=== PATIENT | female | born 1995 | race Two or more races ===

== ENCOUNTER 2017-11-09 06:57 | Day surgery (SDC) | payer OTHER ==
[~2017-11-09] VITALS: Ht 154.9 cm; Wt 70.8 kg
[~2017-11-09 06:57] MED LIST: MINIPRESS1 MG PO; NORCO 10-325 T1 EACH PO; NORCO 5-325 TA1 EACH PO; SENNA8.6 M1 PO; SOLODYN45 MG PO; SUDAFED PE PRE1 EAC2 PO; TYLENOL EXTRA500 MG PO; ZOLOFT100 MG PO
--- NOTE | 2017-11-09 08:40 | NUR ---
11/09/17 0840 Soumya Gerber 0832 - PT ARRIVED TO PACU. OPA IN PLACE. AIRWAY HELD. PT NOT RESPONDING AT THIS TIME. CEO NA AWARE OF BP. STATES NO ACTION NEEDED AT THIS TIME.
[2017-11-09] MEDS ORDERED: ULTRAM50 MG PO (09:59)
--- NOTE | 2017-11-09 10:25 | NUR ---
LE 0915: PT ARRIVES BACK TO ROOM 2 VIA STRETCHER FROM RECOVERY. PT'S MOTHER IN ROOM UPON ARRIVAL. ICE WATER AND WARM BLANKET PROVIDED TO PT, CALL LIGHT WITHIN REACH. NO FURTHER QUESTIONS AT THIS TIME.
--- NOTE | 2017-11-09 11:28 | NUR ---
AMB TO BR SOME LIGHT HEADINESS WHEN UP. SITTING UP IN BED. DENIES NEED FOR PAIN RX. TAKING WATER.
--- NOTE | 2017-11-09 13:08 | NUR ---
AMB HALLWAY TO BR STATES JUST A LITTLE DIZZY BETTER THAN BEFORE. WANTS TO GO HOME. GETTING DRESSED.
--- NOTE | 2017-11-21 07:07 | OR ---
[facility] [address] [place], [place] [address] Signed DATE OF OPERATION: SURGEON: Venessa Celestin MD PREOPERATIVE DIAGNOSIS: Carpal tunnel syndrome, left. POSTOPERATIVE DIAGNOSIS: Carpal tunnel syndrome, left. PROCEDURE: Carpal tunnel release, left. ANESTHESIA: Drain block with sedation. SPECIMENS AND COMPLICATIONS: There were no specimens or complications. TOURNIQUET TIME: About 25 minutes. WHAT WAS DONE: The patient was taken to the operating room. After anesthesia was induced and airway secured, the patient's left upper extremity was positioned, prepped, and draped in a routine sterile fashion. A volar incision was then made beginning at the distal wrist flexion crease and extending distally for about 2 cm in line with the anterior mid axial line of the 4th ray. Skin was divided sharply. Subcutaneous tissue was bluntly spread. The transverse volar carpal ligament was identified and released with the tip of a 15-blade. We then used the tip of a curved tenotomy scissor to release the rest of the transverse volar carpal ligament and the distal 3 cm of the antebrachial fascia. The wound was gently irrigated and closed in standard fashion. Sterile dressing applied. The patient was awakened and taken to the recovery room where she arrived in stable condition. Counts were correct and antibiotic protocols were followed. Electronically Signed By: VENESSA CELESTIN MD 11/21/17 0707 PATIENT NAME: CLARA HAYES OPERATIVE REPORT DATE OF : [birth year] PHYSICIAN: VENESSA CELESTIN MD REPORT #: [id number] REPORT IS CONFIDENTIAL AND NOT TO BE RELEASED WITHOUT AUTHORIZATION [address] [place], [place] [address] Signed Venessa Celestin MD WFB/MODL /[id number] Electronically Signed By: VENESSA CELESTIN MD 11/21/17 0707 PATIENT NAME: CLARA HAYES OPERATIVE REPORT DATE OF : [birth year] PHYSICIAN: VENESSA CELESTIN MD REPORT #: [id number] REPORT IS CONFIDENTIAL AND NOT TO BE RELEASED WITHOUT AUTHORIZATION
== END 2017-11-09 13:00 | disposition home or self-care (01) ==
LOC: DS 06:57 → OPS 06:57 → DS 08:15 → OPS 13:00
PROVIDERS: Orthopaedic Surgery
PROC: 01N50ZZ Release Median Nerve, Open Approach (ICD-10-PCS; principal; 2017-11-09 08:15)
DX: G56.02 Carpal tunnel syndrome, left upper limb (principal); F32.9 Major depressive disorder, single episode, unspecified; Z88.0 Allergy status to penicillin; Z79.899 Other long term (current) drug therapy
CPT/HCPCS: 01810; J1100; J1885; J2250; J2405; J2704; J2765; J3010